=== PATIENT | male | born 1980 | race Caucasian/White ===

== ENCOUNTER 2019-01-07 23:38 | Emergency (ER) | payer SELFPAY ==
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
== END 2019-01-08 01:50 | disposition home or self-care (01) ==
LOC: NAV ERS 23:38
DX: S61.212A Laceration without foreign body of right middle finger without damage to nail, initial encounter (principal); S00.33XA Contusion of nose, initial encounter; F10.129 Alcohol abuse with intoxication, unspecified; R04.0 Epistaxis; F17.210 Nicotine dependence, cigarettes, uncomplicated; V03.99XA Pedestrian with other conveyance injured in collision with car, pick-up truck or van, unspecified whether traffic or nontraffic accident, initial encounter
CPT/HCPCS: 70450; 70486; 72125